=== PATIENT | male | born 1980 | race African-American/Black ===

== ENCOUNTER 2018-03-11 21:05 | Emergency (ER) | payer MEDICAID ==
[~2018-03-11] VITALS: Ht 180.3 cm; Wt 95.3 kg
[2018-03-11] MEDS ORDERED: LEVOFLOXACIN 750 MG TABLET PO ONE (22:00)
--- NOTE | 2018-03-11 22:07 | NUR ---
Patient discharged to home in stable conditon. Written and verbal after care instructions given. Patient verbalizes understanding of instructions.
[2018-03-11] MEDS ORDERED: LEVOFLOXACIN 750 MG TABLET ONE (22:08)
[2018-03-11 22:09] VITALS: BP 138/82
== END 2018-03-11 22:09 | disposition home or self-care (01) ==
LOC: ER 21:07
DX: J06.9 Acute upper respiratory infection, unspecified (principal); F12.10 Cannabis abuse, uncomplicated
CPT/HCPCS: A4663